=== PATIENT | female | born 1980 | race Caucasian/White ===

== ENCOUNTER 2020-09-02 15:30 | Outpatient (RCR) | payer OTHER, SELFPAY ==
--- NOTE | 2020-08-05 16:11 | PTOPEVAL ---
INITIAL PHYSICAL THERAPY EVALUATION and PLAN OF CARE Thank you for referring Annabelle Diallo to [facility].? Annabelle is scheduled to be seen for physical therapy? 2x/week for 4 weeks. Please review, sign, date and return this plan of care ALINA. I agree with and certify that the following plan of care is medically necessary. 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 Does Family stretches at home and at work - does help. Injections helpful. Still taking Tramadol, Celebrex, gabapentin - helps. Sleeping - sleeps fine Stiff/sore in mornings - takes about 1/2 hr for that to go away. Takes medication in mornings. Stands all day at work. 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 Home Meds Must Be Re-entered With Each Visit. Home Setting Home Type House,Multiple Levels Environmental Barriers Stairs, Threshold Living Situation With Adult Child,With Minor Child Mobility Assistive Devices (Used Last 3 None Months)
--- NOTE | 2020-08-24 15:18 | PCPTNOTE ---
Patient did not show up for scheduled appointment this date. Called pt - left message about next appointment 08/26/20 @ 2:30.
--- NOTE | 2020-09-02 16:29 | PTOPEVAL ---
PHYSICAL THERAPY DISCHARGE SUMMARY Thank you for referring Annabelle Diallo to [facility].? Annabelle has been seen x 4 treatments. She has met most of her goals. Doing well with HEP. Ready for d/c from PT to HEP. I agree with Annabelle's discharge from PT. 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 Able to gain relief of back pain with trunk flexion. Thinking about purchasing ther ex ball - encouraged her to do so. Pain Assessment Self Report Pain Assessment Lower Back Reported Pain Level 0 Lowest Pain Intensity 0 Greatest Pain Intensity 2 Pain Aggravating Factors Bending Pain Score Pain Score 0: Self Report Cervical and Lumbar ROM Lumbar ROM Lumbar Flexion (0-90) 60 Query Text:Active in Degrees Lumbar Extension (0-40) 30 Query Text:Active in Degrees Lumbar Lateral Flexion Right (0-40) 25 Query Text:Active in Degrees Lumbar Lateral Flexion Left (0-40) 30 Query Text:Active in Degrees Lumbar ROM WNL Lumbar Comments pelvis/sacrum level - equal SIJ mobility present Palpation Assessment Palpation Palpation pelvis/sacrum - level in standing and supine P-A mob to sacrum and lumbar spine - good mobility - no discomfort elicited Good L-S soft tissue mobility present. PT Clinical Summary Clinical Summary Protocol: PTEVCODE PT Clinical Summary Modified Oswestry LBP Questionnaire - 10% Annabelle has been seen x 4 visits. 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 She is doing well with HEP - occasional cueing to
== END 2020-10-21 14:43 | disposition home or self-care (01) ==
LOC: ANHHIPT 15:30
PROVIDERS: Visit Provider Nurse Practitioner Adult Health
DX: M47.816 Spondylosis without myelopathy or radiculopathy, lumbar region (principal)
CPT/HCPCS: 97110; 97140; 97161